=== PATIENT | male | born 1985 | race Caucasian/White ===

== ENCOUNTER 2019-09-20 22:51 | Emergency (ER) | payer SELFPAY ==
[~2019-09-20] VITALS: Ht 167.6 cm; Wt 91.0 kg
[2019-09-20] MEDS ORDERED: KETOROLAC 60MG/2ML VIAL IM ONE (23:45)
[2019-09-20] MEDS ORDERED: LIDOCAINE 5% PATCH TOP SCH (23:45)
[2019-09-21 00:03] VITALS: BP 137/79
== END 2019-09-21 00:04 | disposition home or self-care (01) ==
LOC: ER 22:51
DX: M79.18 Myalgia, other site (principal)
CPT/HCPCS: 93005; 99283; J1885